=== PATIENT | male | born 2000 | race Asian ===

== ENCOUNTER 2024-01-18 18:05 | Emergency (ER) | payer SELFPAY ==
[~2024-01-18] VITALS: Ht 185.4 cm; Wt 136.0 kg
[2024-01-18 18:22] VITALS: TEMP 98.1
[2024-01-18 21:15] VITALS: BP 132/76; PULSE 86
== END 2024-01-18 21:16 | disposition home or self-care (01) ==
LOC: COL.ER 18:05
DX: S80.212A Abrasion, left knee, initial encounter (principal); S80.211A Abrasion, right knee, initial encounter; V28.09XA Other motorcycle driver injured in noncollision transport accident in nontraffic accident, initial encounter